=== PATIENT | female | born 1995 | race Caucasian/White ===

== ENCOUNTER → 2016-07-01 | Outpatient (CLI) | payer OTHER | LOC: US 12:30 | PROVIDERS: ATTEND Family Medicine | DX: Z30.431 Encounter for routine checking of intrauterine contraceptive device (principal) | CPT/HCPCS: 76830 ==

== ENCOUNTER → 2016-07-06 | Outpatient (CLI) | payer OTHER | LOC: MOB LAB 10:38 | PROVIDERS: ATTEND Family Medicine | DX: N89.8 Other specified noninflammatory disorders of vagina (principal) | CPT/HCPCS: 87480; 87491; 87510; 87591; 87660 ==

== ENCOUNTER → 2016-07-06 | Outpatient (CLI) | payer OTHER ==
--- NOTE | 2016-07-06 15:35 | DI ---
XR WRIST COMPLETE MIN 3VW,07/06/2016 2:52 PM: Clinical History: Right wrist pain. Previous Exam: May 03, 2016 Findings: 5 views of the right wrist are obtained, and demonstrate anatomic alignment without fractures. There is no evidence of diastases of the scapholunate or lunotriquetral joint. Surrounding soft tissues are unremarkable. Impression: Normal right wrist.
== END ==
LOC: ORTHO 15:44
PROVIDERS: ATTEND Orthopaedic Surgery
DX: M25.531 Pain in right wrist (principal); W18.39XA Other fall on same level, initial encounter; Y93.E1 Activity, personal bathing and showering
CPT/HCPCS: 73110